=== PATIENT | female | born 2000 | race African-American/Black ===

== ENCOUNTER 2021-10-06 18:21 | Emergency (ER) | payer OTHER, SELFPAY ==
[2021-10-06 18:23] VITALS: BP 134/81; PULSE 96; RESP 20; TEMP 37; O2SAT 98
--- NOTE | 2021-10-06 18:39 | ED.GENADULT ---
HPI - General Adult General Chief complaint: Wound/Laceration Stated complaint: laceration Time Seen by Provider: 10/06/21 18:27 Source: patient Mode of arrival: ambulatory Limitations: no limitations History of Present Illness HPI narrative: Patient is a 21 yo female with CC of laceration to the distal aspect of the left 2nd digit that she sustained last night while using a knife. She reports she cleaned it and put a bandaid on the area. She reports it looked different today so she decided to come have it checked out. She states she is not UTD on tetanus. Review of Systems Review of Systems: CONSTITUTIONAL: Denies fever, chills, or sweats. EYES: Denies visual changes, redness, or discharge. ENT: Denies rhinorrhea, congestion, sore throat, or otalgia. CARDIOVASCULAR: Denies chest pain, palpitations, or edema. RESPIRATORY: Denies cough or dyspnea. GASTROINTESTINAL: Denies abdominal pain, nausea, vomiting, or diarrhea. GENITOURINARY: Denies dysuria or hematuria. SKIN: Reports laceration Denies rash or itching. MUSCULOSKELETAL: Denies back pain, joint pain, or myalgia. NEUROLOGIC: Denies headache, numbness, dizziness, or weakness. PSYCHIATRIC: Denies anxiety or depression. Exam Narrative: GENERAL: Well-appearing, well-nourished, and in no acute distress. HEAD: Normocephalic, atraumatic. EYES: PERRLA and EOMI. CHEST: Clear to auscultation. No respiratory distress. No wheezes rales or rhonchi HEART: Regular rate and rhythm. No murmur heard. Normal peripheral pulses. EXTREMITIES: Normal range of motion. No edema. SKIN: laceration to the distal tip of the left 2nd digit. Not bleeding. ROM intact. cap refill and sensation intact. Warm, dry, no rash. NEURO: No focal deficits. Alert and oriented x3. PSYCH: Normal mood and affect. Course Vital Signs Vital signs: Vital Signs Temperature 98.6 F 10/06/21 18:23 Pulse Rate 96 10/06/21 18:23 Respiratory Rate 20 10/06/21 18:23 Blood Pressure 134/81 10/06/21 18:23 Pulse Oximetry 98 10/06/21 18:23 Temperature 98.6 F 10/06/21 18:23 Pulse Rate 96 10/06/21 18:23 Respiratory Rate 20 10/06/21 18:23 Blood Pressure 134/81 10/06/21 18:23 Pulse Oximetry 98 10/06/21 18:23 Medical Decision Making MDM Narrative Medical decision making narrative: Discussed with the patient that the laceration cannot be closed since it occurred last night. The patient has been instructed to wash area with antibacterial soap and apply antibacterial ointment. Patient will be updated on her tetanus. Patient will be given a splint to protect the laceration when she is up and about as she reports she continues to bump the digit. Vital Signs Vital Signs: Vital Signs Temperature 98.6 F 10/06/21 18:23 Pulse Rate 96 10/06/21 18:23 Respiratory Rate 20 10/06/21 18:23 Blood Pressure 134/81 10/06/21 18:23 Pulse Oximetry 98 10/06/21 18:23 Temperature 98.6 F 10/06/21 18:23 Pulse Rate 96 10/06/21 18:23 Respiratory Rate 20 10/06/21 18:23 Blood Pressure 134/81 10/06/21 18:23 Pulse Oximetry 98 10/06/21 18:23 Discharge Plan Discharge Clinical Impression: Laceration Patient Disposition: Home, Self-Care Condition: Stable Instructions: Antibiotic Form, Finger Laceration (ED) Additional Instructions: Wear splint to protect when you are up and about. Remove it at rest so your finger does not become stiff. Wash area with antibacterial soap and apply antibacterial ointment. Follow-up with your primary care in 2 to 3 days for wound reevaluation. Follow-up sooner if there are any questions or concerns or worsening signs of infection. Return to emergency department if you have any emergent symptoms. Follow-up/Referrals: UNKNOWN,DOCTOR [Primary Care Provider] - Time of Disposition: 18:50
[2021-10-06] MEDS: TETANUS,DIPHTHERIA,AC PERTUSSIS ADULT (0.5 ML) BOOSTRIX IM (18:49)
--- NOTE | 2021-10-06 18:59 | PC.NURSE ---
wound dressed with Bacitracin triple antibiotic ointment.
[2021-10-06 19:35] VITALS: BP 113/72; PULSE 76; RESP 18; O2SAT 100
== END 2021-10-06 19:35 | disposition home or self-care (01) ==
LOC: ANHED 18:57
PROVIDERS: Emergency Provider Emergency Medicine
DX: S61.211A Laceration without foreign body of left index finger without damage to nail, initial encounter (principal); Z23 Encounter for immunization; W26.0XXA Contact with knife, initial encounter
CPT/HCPCS: 29130; 90471; 90715; 99282; A9270

== ENCOUNTER 2025-09-04 03:17 | Emergency (ER) | payer MEDICAID, SELFPAY ==
--- OUTSIDE RECORDS SUMMARY | 2008-12-12 18:00 | XMS_ITS | Continuity of Care Document ---
Author Organization [facility] Address [address] [place] [id number] Phone Care Team Providers Care Psychological Assistant Name Role Phone CONV, [facility] Unavailable Unavailable Advance Directives Directive Yes / No Effective Date File Name No Information Encounters Encounter Description Practice Location Reason(s) For Visit Diagnoses Date Provider Providers Copied on Encounter [facility] /[facility], [address] [place] [address], [id number], [place] tel:[phone] Z [facility] CONV No Information CONV [facility]. [address] [place] [address], [id number], [place]. Family History Family Member Type Diagnosis Age At Onset No Information Immunizations Vaccine Date Status Comments DTAP administered Source: New Imm unization Record [id number], PED/ADL administered Note: RA ; Source: N ew Immunization Record INJECTABLE POLIOVIRUS administered Note: LA ; Source: New Immunization Record HIB 3 DOSE SERIES administered Source: Ne w Immunization Record DTP administered Source: New Imm unization Record DTP administered Note: LA ; Sour ce: New Immunization Record [id number], PED/ADL administered Note: LA ; Source: N ew Immunization Record VARICELLA, PED/ADOLESCENT administered So urce: New Immunization Record HIB 3 DOSE SERIES administered Source: Ne w Immunization Record DTP administered Note: LA ; Sour ce: New Immunization Record ORAL POLIO administered Note: PO ; Sour ce: New Immunization Record HEP B VACCINE PED/ADOL administered Note: LA ; Source: New Immunization Record HIB 3 DOSE SERIES administered Source: Ne w Immunization Record DTP administered Note: LA ; Sour ce: New Immunization Record ORAL POLIO administered Note: PO ; Sour ce: New Immunization Record HIB 3 DOSE SERIES administered Source: Ne w Immunization Record DTP administered Note: LA ; Sour ce: New Immunization Record ORAL POLIO administered Note: PO ; Sour ce: New Immunization Record HEP B VACCINE PED/ADOL administered Note: LA ; Source: New Immunization Record HEP B VACCINE PED/ADOL administered Note: LA ; Source: New Immunization Record Payers Payer name Insurance type Covered democrat ID Authoriza tion(s) No Information Social History Type Description Quantity Date Captured Comments Sex Female Smoking Status No Information Chief Complaint And Reason For Visit No Information History Of Present Illness Encounter Date Complaint History Of Prese nt Illness No Information Instructions Date Instruction Additional Infor mation No Information Assessments Type Assessment Date No Information Patient Care Teams Name Effective Dates (start - stop) Status Members No Information
[2025-09-04] VITALS (17 sets, daily range): BP systolic 97–122; BP diastolic 46–96; PULSE 79–94; RESP 18–20; TEMP 36.9; O2SAT 88–100
--- NOTE | 2025-09-04 03:52 | ED.NAVMDI ---
HPI - Nausea/Vomiting/Diarrhea General Chief complaint: Nausea/Vomiting/Diarrhea Stated complaint: N/V; 3 MONTHS Time Seen by Provider: 09/04/25 03:43 History of Present Illness HPI Narrative: 25-year-old female approximately 14 weeks by ultrasonography. She has care and follows with OBGYN in [place] where she lives. This is her 7th . Patient has 3 live children at home. No previous gestational issues such as gestational hypertension or nausea vomiting in . No history of morning sickness. States that she felt nauseous and vomited earlier today. She said she was having some low back pain as well but denies any urinary complaints. No fever, chills. Was otherwise in her normal state of health. Her kids at home have been having runny nose and vomiting at home as well. No recent other exposures. No recent medications. Besides prenatals and antidepressants does not take any chronic medications. Was otherwise in her normal state of health. States she had some Zofran at home from a prescription that she tried but vomitted after. Related Data Allergies Allergy/AdvReac Type Severity Reaction Status Date / Time No Known Allergies Allergy Verified 09/04/25 03:22 Review of Systems Review of Systems: As reviewed above in HPI Exam Narrative: GENERAL: [Well-appearing, well-nourished, and in no acute distress.] HEAD: [Normocephalic, atraumatic.] EYES: [PERRLA and EOMI.] ENT: Nares clear, no rhinorrhea or epistaxis. Mucous membranes moist. NECK: Supple. CHEST: [Clear to auscultation. No respiratory distress.] HEART: [Regular rate and rhythm]. No murmur heard. [Normal peripheral pulses.] ABDOMEN: [Soft, nondistended], [nontender], [No rigidity or guarding] EXTREMITIES: Normal range of motion. [No edema.] SKIN: Warm, dry, no rash. NEURO: [No focal deficits]. Alert and oriented [x3.] PSYCH: [Normal mood and affect.] Course Vital Signs Vital signs: Vital Signs Blood Pressure 122/61 09/04/25 03:22 Pulse Oximetry 98 09/04/25 03:22 Temperature 36.9 C 09/04/25 03:23 Pulse Rate 79 09/04/25 05:46 Respiratory Rate 18 09/04/25 05:46 Blood Pressure 97/58 L 09/04/25 05:46 Pulse Oximetry 99 09/04/25 05:46 MDM - Nausea/Vomiting/Diarrhea MDM Narrative Medical decision making narrative: 25-year-old female approximately 14 weeks by ultrasonography. She has care and follows with OBGYN in [place] where she lives. This is her 7th . Patient has 3 live children at home. No previous gestational issues such as gestational hypertension or nausea vomiting in . No history of morning sickness. States that she felt nauseous and vomited earlier today. She said she was having some low back pain as well but denies any urinary complaints. No fever, chills. Was otherwise in her normal state of health. Her kids at home have been having runny nose and vomiting at home as well. No recent other exposures. No recent medications. Besides prenatals and antidepressants does not take any chronic medications. Was otherwise in her normal state of health. States she had some Zofran at home from a prescription that she tried but vomitted after. Patient is overall very well-appearing not any acute distress. In good spirits and pleasant to speak with. She has normal vital signs with any tachycardia, fever, hypoxemia or blood pressure concerns. She has a soft nontender nondistended abdomen. No signs of peritonitis. Likely benign nausea vomiting during versus hyperemesis gravidarum versus less likely infectious process such as UTI or intra-abdominal infection given the benign exam and lack of fever. Could also be a viral syndrome as her kids have had similar symptoms today. Given Zofran and Vit B6 with fluids and basic laboratory studies and urine obtained. Patient felt improved after interventions and remains hemodynamically stable. Laboratory studies showed no leukocytosis or significant anemia. Normal creatinine and electrolytes. Urinalysis without any signs of active infection. Safe for discharge with regular OB follow-up. Given prescription for Reglan as needed. Medical Records Attestation: I reviewed the patient's medical records. Lab Data Attestation: I reviewed the patient's lab results. 09/04/25 04:32 09/04/25 04:32 Labs: Lab Results 09/04/25 09/04/25 Range/Units 04:32 05:29 WBC 5.4 (4.5-10.0) K/mm3 RBC 4.40 (4.2-5.4) M/mm3 Hgb 11.6 L (12.0-15.0) g/dL Hct 35.1 L (37.0-47.0) % MCV 79.8 L (80-100) fl MCH 26.4 (26-34) pg MCHC 33.0 (32-36) g/dl RDW 13.8 (11.5-14.5) % Plt Count 260 (150-375) k/mm3 MPV 9.9 (7.4-10.4) fl Immature Gran % (Auto) 0.4 (0-0.5) % Neut % (Auto) 86.2 H (45.5-73.1) % Lymph % (Auto) 9.3 L (18.3-44.2) % Campbell % (Auto) 3.5 (2.6-8.5) % Eos % (Auto) 0.2 (0-4.4) % Baso % (Auto) 0.4 (0.2-1.2) % Lymph # (Auto) 0.50 L (0.9-3.2) K/mm3 Campbell # (Auto) 0.2 (0.1-0.6) K/mm3 Eos # (Auto) 0.0 (0-0.3) K/mm3 Baso # (Auto) 0.0 (0.0-0.1) K/mm3 Abs Immat Gran (auto) 0.02 (0.00-0.031) K/mm3 Absolute Neuts (auto) 4.6 (1.3-6.7) K/mm3 Absolute Nucleated RBC 0.000 (0.0-0.012) K/mm3 Nucleated RBC % 0.0 (0.0-0.2) % Sodium 131 L (137-145) mmol/L Potassium 3.4 (3.4-5.0) mmol/L Chloride 101 (98-107) mmol/L Carbon Dioxide 25 (22-30) mmol/L Anion Gap 5 (4-12) mmol/L BUN 6 L (7-17) mg/dL Creatinine 0.61 L (0.7-1.0) mg/dL Estim Creat Clear Calc 111 ml/min Estimated GFR > 60 (59 - ) Glucose 111 H (65-110) mg/dL Calcium 8.4 (8.4-10.2) mg/dL Total Bilirubin 0.9 (0.2-1.3) mg/dL AST 19 (14-36) U/L ALT 13 (6-35) U/L Alkaline Phosphatase 68 (38-126) U/L Total Protein 6.8 (6.3-8.2) g/dL Albumin 3.6 (3.5-5.1) g/dL Lipase 32 (23-300) U/L Urine Color Yellow (Yellow) Urine Appearance Cloudy H (Clear) Urine pH 5.5 (5.0-9.0) Ur Specific [place] 1.020 (1.001-1.035) Urine Protein Negative (Negative) mg/dL Urine Glucose (UA) Negative (Negative) mg/dL Urine Ketones 3+ H (Negative) mg/dL Ur Blood (Man) Negative (Negative) Urine Nitrate Negative (Negative) Urine Bilirubin Negative (Negative) Urine Urobilinogen 1.0 (<2.0) mg/dL Leukocyte Esterase Rfl Trace H (Negative) MAGALI/UL Urine RBC 0-2 (0-2) /hpf Urine WBC 0-5 (0-3) /hpf Ur Squamous Epith Cells Moderate (Few) /hpf Urine Bacteria 1+ H /hpf Urine Casts 0-2 Influenza A (RT-PCR) Negative (Negative) Influenza B (RT-PCR) Negative (Negative) RSV (RT-PCR) Negative (Negative) SARS-CoV-2 RNA (RT-PCR) Negative (Negative) Discharge Plan Discharge Clinical Impression: Nausea and vomiting during Patient Disposition: Home Condition: Stable Instructions: Antibiotic Form, Acute Nausea and Vomiting (ED) Additional Instructions: Laboratory studies showed no signs of infection or dehydration. No signs of urinary disease or urinary infection. We will send you home with strong anti nausea medications and encourage you to follow-up with your OBGYN during this . Return with any inability to tolerate oral intake, worsening symptoms or new developing emergent issues. Patient Language: Macedonian Prescriptions: New metoclopramide HCl [Reglan] 5 mg tablet 5 mg PO Q8H PRN (Reason: nausea and vomiting) Qty: 10 0RF Follow-up/Referrals: PHYSICIAN,ARTIFICIAL INTELLIGENCE SPECIALIST [Primary Care Provider, Internal Medicine] Time of Disposition: 05:42
[2025-09-04] MEDS: ONDANSETRON INJ 4 MG/2 ML VIAL IV PUSH (04:13)
[2025-09-04] MEDS: LACTATED RINGERS 1,000 ML 999 ML IV CONT (04:13)
[2025-09-04] MEDS: PYRIDOXINE HCL 100 MG/ML VIAL (*SPC) 50 MG IV PUSH (04:16)
--- OUTSIDE RECORDS SUMMARY | 2025-09-04 04:23 | XMS_ITS | Clinical Summary ---
Author Organization [facility] Address [address] [place] [address] Care Team Providers Care Corporate Quality Engineer Name Role Phone No, Physician Primary Care Provider [phone] Keenan Mckenzie MD Unavailable [phone] Allergies Active Allergy Reactions Criticality Noted Date Comments Fluoxetine Urticaria Medium 10/29/2023 Lamotrigine Hives Medium 12/12/2018 Nickel Hives Medium 08/03/2018 Medications famotidine (PEPCID) 20 mg tablet Take 1 tablet (20 mg total) by mouth 2 (two) times a day. 60 tablet 12/12/19 19 Active Additional Information Patient not taking.Reported on 08/22/2022 polyethylene glycol (MIRALAX) 17 gram packetIndications: constipation Take 1 packet (17 g total) by mouth daily as needed for constipation 10 packet 06/08/20 22 Active ondansetron ODT (ZOFRAN-ODT) 4 mg disintegrating tablet Take 1 tablet (4 mg total) by mouth every 8 (eight) hours as needed for nausea or vomiting 20 tablet 04/05/20 24 Active acetaminophen (TYLENOL) 500 mg tablet Take 1 tablet (500 mg total) by mouth every 6 (six) hours as needed for pain 30 tablet 04/05/20 24 Active ondansetron ODT (ZOFRAN-ODT) 4 mg disintegrating tablet Dissolve 1 tablet oral every 4 hours as needed for nausea or vomiting. 15 tablet 04/09/20 25 Active Active Problems Problem Noted Date Diagnosed Date Neuroendocrine tumor 09/06/2022 Overview (09/06/2022): Added automatically from request for surgery [id number] Acute appendicitis 06/08/2022 Assessment & Plan (06/08/2022 10:58 AM CDT): Presents to the [facility] ED w/ 2 days of RLQ and right flank pain. She also endorses fevers, chills, nausea, and NBNB emesis. On arrival to [facility] ED, she was febrile to 101.4 F and tachycardic to 114. Exam notable for RLQ tenderness to palpation, right CVA tenderness, +Rovsing sign, and +Obturator sign. Labs notable for WBC 9.5, INR 1.3, Na 134, and UA w/ cloudy urine, 3+ leuk est, > 50 WBC, and trace bacteria. Contrasted CT abd/pelvis notable for right acute pyelonephritis and tip appendicitis with large appendicolith in the distal appendix. - NPO for urgent laparoscopic appendectomy - Vanc/cefe/flagyl OR 06/08 ([facility]) laparoscopic appendectomy - 06/08 POD#0, Stop vanc & cefe. Outpatient oral abx regimen (SEE PYELO) + flagyl, ADAT to regular. OOB. Follow up [facility] via [facility] Pathology: 06/08 OR Pathology, appendix - pending Pyelonephritis 06/08/2022 Assessment & Plan (06/08/2022 10:58 AM CDT): 06/08 UA+, culture in process Vanc/cefe started pre-op - 06/08 stop Vanc & Cefe, oral abx until urine culture result available, afebrile & WBC NL --- f/u with PCP Bloody diarrhea 09/15/2018 Assessment & Plan (09/15/2018 1:05 AM REGIONAL OPERATIONS DIRECTOR): 18 yo girl presenting with 1 day of bloody diarrhea. Symptoms began evening RN INTERVENTIONAL with cramping followed by bloody diarrhea, which she describes as dark red in color. In ED, CBC, CMP, coags were reassuring. Hemoccult was negative. Admitted for HUS mitigation protocol. Infectious etiologies are at the top of the differential given history of eating a hamburger at her work that may or may not have been cooked through and then eating a gas station empanada the next evening. Stool was obtained in the ED and cultures are currently pending. Alternatively, this may not be true blood in her stools. Hemoccult was negative and her description of the orange colored buffalo chicken empanada suggest that her stool color may be an artifact of that meal. Her burning sensation with defecation could indicate anal fissures, although none were noted on exam. - HUS mitigation fluids: 2 L/m2/d D5 NS w/KCl - Daily BMP, CBC - f/u stool culture - POAL - Strict I/O Anxiety 09/15/2018 Assessment & Plan (09/15/2018 1:06 AM REGIONAL OPERATIONS DIRECTOR): On Prozac for anxiety/depression. Will continue while admitted. Insomnia 09/15/2018 Assessment & Plan (09/15/2018 1:07 AM REGIONAL OPERATIONS DIRECTOR): Takes trazadone qhs for insomnia, will continue while admitted. Encounters Date Type Department Care Team Description 07/05/2025 Telephone [facility] [address] [place] [address] Manohar Boyle RN 07/03/2025 12:15 PM CDT - 07/03/2025 4:05 PM CDT Emergency [facility] [address] [place] [address] Althea Evans MD Threatened miscarriage in early (Primary Dx) Discharge Disposition: Discharge to home or self care 06/19/2025 12:28 PM CDT - 06/19/2025 3:13 PM CDT Emergency [facility] [address] [place] [address] Althea Evans MD Abdominal pain (Primary Dx); Bleeding in early Discharge Disposition: Discharge to home or self care from Last 3 Months Immunizations Immunization Administration Dates Next Due Influenza, Quadrivalent, Spl it, Preservative Free, Intramuscular 09/15/2018 Surgical History Surgery Date Site/Laterality Comments GALLBLADDER SURGERY APPENDECTOMY CHOLECYSTECTOMY Medical History Medical History Date Comments Insomnia Anxiety Depression Neuroendocrine cancer (HCC) Social History Tobacco Use Types Packs/Day Years Used Date Smoking Tobacco: Former Vaping Q uit: 08/18/2022 Smokeless Tobacco: Never Tobacco Cessation:Counseling Given: Not Answered AUDIT-C Answer Date Recorded Q1: How often do you have a drink containing alcohol? Never 02/25/2023 Q2: How many drinks containi ng alcohol do you have on a typical day when you are drinking? Patient does not drink Q3: How often do you have si x or more drinks on one occasion? Never 02/25/2023 Personal Safety Answer Date Recorded Have you ever been in or are you currently in a harmful physical or emotional relationship or is someone making you feel afraid or unsafe? Denies 07/03/2025 Comments Unknown Sex and Gender Information Value Date Recorded Sex Assigned at Not on file Legal Sex Female 1:28 AM CDT Gender Identity Not on file Sexual Orientation Not on file Obstetrics History Para Term AB IAB SAB Ectopic Multiple Livin g Live Births 4 2 1 1 2 2 Date Outcome GA Total Labor Labor/2nd/3rd Weight Sex Type Anes PTL Michelle A1 A5 Name Clin 2019 F Vag-S pont Epidur al Y Livin g Delivery Location:[facility] 023 Term F Vag-S pont Epidur al Livin g Delivery Location:[facility] Last Filed Vital Signs Vital Sign Reading Time Taken Comments Blood Pressure 95/55 07/03/2025 11:29 AM CDT Pulse 65 07/03/2025 11:28 AM CDT Temperature 36.6 C (97.8 F) 07/03/2025 11:28 AM CDT Respiratory Rate 17 07/03/2025 11:28 AM CDT Oxygen Saturation 97% 07/03/2025 11:28 AM CDT Inhaled Oxygen Concentration - - Weight 71.7 kg (158 lb) 07/03/2025 11:28 AM CDT Height 160 cm (5' 3) 06/19/2025 11:20 AM CDT Body Mass Index 27.99 06/19/2025 11:20 AM CDT Plan of Treatment Health Maintenance Due Date Last Done Comments Cervical Cancer Screening 1998 Depression Screening 1998 Regular Well Visit/Exam 18-64 01/15/2016 HPV Vaccines (1 - 3-dose SCDM series) 2025 Influenza Vaccine (#1) 2025 02/07/2020, 2017 DTaP/Tdap/Td Vaccine (8 - Td or Tdap) 10/06/2031 10/06/2021, 07/28/2020, 02/19/2003, Additional history exists Hepatitis B Screening Completed 05/22/2001 , 1998, 1998, Additional history exists Varicella Vaccines Completed 05/08/2009, 02/11/1999 Hepatitis C Screening Completed 07/03/2025 Pneumococcal vaccine <65 Aged Out No longer eligible based on patient's age to complete this topic Procedures Procedure Name Priority Date/Time Associated Diagnosis Comments N. GONORRHOEAE/C. TRACHOMATIS AMPLIFICATION Routine 07/03/2025 2:43 PM CDT TRICHOMONAS VAGINALIS PCR Routine 07/03/2025 2:43 PM CDT POCUS FEMALE TAB PELVIC, NON- 07/03/2025 1:59 PM CDT POCT RAPID HIV ANTIBODY COMMUNITY SCREENING-RANDAL ELIGIBLE STAT 07/03/2025 1:11 PM CDT HEPATITIS PANEL, ACUTE Routine 1:09 PM CDT RPR Routine 07/03/2025 1:09 PM CDT URINALYSIS AND REFLEX TO MICROSCOPIC AND CULTURE STAT 07/03/2025 12:57 PM CDT DIFFERENTIAL AUTO STAT 07/03/2025 12: 53 PM CDT CBC WITH AUTO DIFFERENTIAL STAT 07/03/2025 12:53 PM CDT HCG, BLOOD, QUANTITATIVE STAT 07/03/2025 12:53 PM CDT DIFFERENTIAL AUTO STAT 06/19/2025 1:1 3 PM CDT CBC WITH AUTO DIFFERENTIAL STAT 06/19/2025 1:13 PM CDT HCG, BLOOD, QUANTITATIVE STAT 06/19/2025 1:13 PM CDT POCT HCG, URINE Routine 06/19/2025 1:04 PM CDT from Last 3 Months Results * N. gonorrhoeae/C. trachomatis Amplification Endocervical (07/03/2025 2:43 PM CDT) C. trachomatis Not Detected Not Detected [facility] N. gonorrhoeae Not Detected Not Detected [facility] Comment: Interpretive Data This assay detects Chlamydia trachomatis and Neisseria gonorrhoeae by nucleic acid amplification testing (NAAT). This assay has been cleared by the [place] Food and Drug administration. The performance characteristics of this test have been verified by the [facility] laboratory. The performance characteristics of this test have not been evaluated in individuals less than 14 years of age. Current Interpretive Data last revised 2023. Endocervical (None) 07/03/20 25 2:43 PM CDT 07/03/2025 2:53 PM CDT us Althea Evans MD LAB MICROBIOLOGY - GENERAL O RDERABLES Final Result [facility] [place] [address] [facility] * Trichomonas vaginalis PCR Endocervical (07/03/2025 2:43 PM CDT) Trichomonas DNA Not Detected Not Detected [facility] Endocervical 07/03/2025 2:43 PM CDT 07/03/2025 2:53 PM CDT Narrative [facility] - 07/03/2025 4:10 PM CDT Interpretive Data: This assay detects Trichomonas vaginalis by nucleic acid amplification testing (NAAT). This assay has been cleared by the [place] Food and Drug administration. The performance characteristics of this test have been verified by the [facility] laboratory. Excess blood in specimens may be inhibitory and result in false negative results. The performance of this test has not been evaluated in women or individuals less than 18 years of age. Althea Evans MD LAB MICROBIOLOGY - GENERAL O RDERABLES Final Result [facility] [place] [address] [facility] * POCUS Female TAB Pelvic, Non- (07/03/2025 1:59 PM CDT) Anatomical Region Laterality Modality Other 07/03/2025 1:48 PM CDT Narrative 07/22/2025 3:56 PM CDT Performed by: Jorge Bolanos Transabdominal: Exam Information: Exam type: Diagnostic Indication(s) for Exam: Quantitative hCG (+) Findings: IUP: Present Intrauterine findings: Yolk sac location: Fundus Right adnexa : No significant abnormality Left adnexa : No significant abnormality Pelvic free fluid: Small Interpretation: IUP of indeterminate viability Electronically signed by Jorge Bolanos on Thursday, July 03, 2025 at 5:15 PM I have reviewed the images & the resident's interpretation. I agree with the findings. Images on file. Electronically signed by ALTHEA ROBERSON on Tuesday, July 22, 2025 at 3:56 PM I have reviewed the images & the resident's interpretation. I agree with the findings. Images on file. Procedure Note Althea Evans MD - 07/22/2025 Performed by: Jorge Bolanos Transabdominal: Exam Information: Exam type: Diagnostic Indication(s) for Exam: Quantitative hCG (+) Findings: IUP: Present Intrauterine findings: Yolk sac location: Fundus Right adnexa : No significant abnormality Left adnexa : No significant abnormality Pelvic free fluid: Small Interpretation: IUP of indeterminate viability Electronically signed by Jorge Bolanos on Thursday, July 03, 2025 at5:15 PM I have reviewed the images & the resident's interpretation. I agree withthe findings. Images on file. Electronically signed by ALTHEA ROBERSON on Tuesday, July 22, 2025 at3:56 PM I have reviewed the images & the resident's interpretation. I agree withthe findings. Images on file. Althea Evans MD POCUS ORDERABLES Final Resul t * POCT Rapid HIV Antibody Community Screening-Randal Eligible (07/03/2025 1:11 PM CDT) Pathologist [facility] Rapid HIV, POC Negative Negative Lot Number [id number] QC Control Line Acceptable Blood 07/03/2025 1:11 PM CDT Althea Evans MD POINT OF CARE TEST ORDERABLE S Final Result * Hepatitis panel, acute Blood (07/03/2025 1:09 PM CDT) Pathologist [facility] Hep A IgM Nonreactive Nonreactive Hep B core IgM Nonreactive Nonreactive [facility] Hep C Ab Nonreactive Nonreactive [facility] Comment:Antibodies to HCV no t detected. Does NOT exclude the possibility of recent exposure to HCV. Current interpretive data was last revised on 22 HepBsAg Nonreactive Nonreactive [facility] Blood 07/03/2025 1:09 PM CDT 07/03/2025 1:18 PM CDT Althea Evans MD LAB MICROBIOLOGY - GENERAL O RDERABLES Final Result [facility] Department of Laboratories [place], [place] [id number] * RPR Blood Blood, venous (07/03/2025 1:09 PM CDT) RPR Nonreactive Nonreactive Blood Venous blood specimen / Unknown 07/03/2025 1:09 PM CDT 07/03/2025 1:18 PM CDT us Althea Evans MD LAB MICROBIOLOGY - GENERAL O RDERABLES Final Result [facility] [place] [address] * Urinalysis reflex to microscopic and culture Urine (07/03/2025 12:57 PM CDT) Color, ur Yellow Yellow Clarity, ur Clear Clear [facility] Specific gravity, ur 1.016 1.003 - 1.030 [facility] pH, urine 6.5 [facility] Comment: Interpretive Data U rine pH is affected by diet, medications, systemic acid-base disturbances, and renal tubular function. pH may affect urinary stone formation. For example, urine pH below 6.0 may help reduce the tendency for calcium phosphate stones and pH greater than 6.0 may reduce the tendency for uric acid stone formation. Source: [facility] Current Interpretive Data was last revised on 2017 Protein, ur ql Negative Negative [facility] Glucose, ur ql Negative Negative [facility] Ketones, ur Negative Negative [facility] Bilirubin, ur Negative Negative [facility] Blood, ur Negative Negative [facility] Urobilinogen, ur <2.0 <2.0 mg/dL [facility] Nitrite, ur Negative Negative [facility] Leukocyte esterase, ur Negative Negative [facility] UA reflex comment Reflex conditions for microscopic UA and culture not met. [facility] Urine 07/03/2025 12:5 7 PM CDT 07/03/2025 1:05 PM CDT us Althea Evans MD LAB MICROBIOLOGY - GENERAL O RDERABLES Final Result [facility] [place] [address] * Differential, auto (07/03/2025 12:53 PM CDT) Neutrophil abs 5.23 1.50 - 6.50 K/cumm Imm gran abs 0.02 0.00 - 0.10 K/cumm [facility] Lymphocyte abs 2.24 0.80 - 3.30 K/cumm [facility] Monocyte abs 0.43 0.20 - 0.80 K/cumm [facility] Eosinophil abs 0.04 0.00 - 0.50 K/cumm [facility] Basophil abs 0.04 0.00 - 0.10 K/cumm [facility] Neutrophil pct 65.3 % [facility] Comment: Interpretive Data Percent cell count reference ranges are not reported, since discordance with absolute values may lead to misinterpretation of CBC data. Current Interpretive Data was last revised on 2018. Imm gran pct 0.3 % [facility] Comment: Interpretive Data Percent cell count reference ranges are not reported, since discordance with absolute values may lead to misinterpretation of CBC data. Current Interpretive Data was last revised on 2018. Lymphocyte pct 28.0 % [facility] Comment: Interpretive Data Percent cell count reference ranges are not reported, since discordance with absolute values may lead to misinterpretation of CBC data. Current Interpretive Data was last revised on 2018. Monocyte pct 5.4 % [facility] Comment: Interpretive Data Percent cell count reference ranges are not reported, since discordance with absolute values may lead to misinterpretation of CBC data. Current Interpretive Data was last revised on 2018. Eosinophil pct 0.5 % [facility] Comment: Interpretive Data Percent cell count reference ranges are not reported, since discordance with absolute values may lead to misinterpretation of CBC data. Current Interpretive Data was last revised on 2018. Basophil pct 0.5 % [facility] Comment: Interpretive Data Percent cell count reference ranges are not reported, since discordance with absolute values may lead to misinterpretation of CBC data. Current Interpretive Data was last revised on 2018. Blood 07/03/2025 12:5 3 PM CDT 07/03/2025 1:02 PM CDT Althea Evans MD LAB BLOOD ORDERABLES Final R esult Performing Organization Address City/State/[facility] de Phone Number [facility] [place] [address] * (ABNORMAL) CBC with auto differential (07/03/2025 12:53 PM CDT) [facility] WBC 8.00 3.80 - 9.90 K/cumm Hgb 13.1 11.9 - 15.5 g/dL [facility] Hct 37.7 35.6 - 45.5 % [facility] Plt 293 150 - 400 K/cumm [facility] MPV 10.4 9.1 - 12.3 fL [facility] RBC 4.81 3.90 - 5.20 M/cumm [facility] MCV 78.4(L) 81.3 - 96.4 fL [facility] MCH 27.2 27.1 - 33.3 pg [facility] MCHC 34.7 32.3 - 35.7 g/dL [facility] RDW CV 15.2(H) 11.1 - 14.9 % [facility] RDW SD 43.1 35.7 - 48.1 fL [facility] NRBC abs 0.00 0.00 - 0.01 K/cumm [facility] Blood 07/03/2025 12:5 3 PM CDT 07/03/2025 1:02 PM CDT us Althea Evans MD LAB BLOOD ORDERABLES Final R esult Performing Organization Address [facility] Co de Phone Number [facility] [place] [address] * (ABNORMAL) hCG, blood, quantitative (07/03/2025 12:53 PM CDT) [facility] hCG, quant 28,594.0( H) 0.0 - 5.0 I[facility]/L Comment: Interpretive Data Male: < 5 IU/L Non- premenopausal Female: <5 IU/L The [employer] hCG Beta Quant assay procedure was used. Results from different manufacturers or methods may not be comparable. Serial testing should be performed using the same method. Interpretive Data was last revised on 2023 Blood 07/03/2025 12:5 3 PM CDT 07/03/2025 1:02 PM CDT us Althea Evans MD LAB BLOOD ORDERABLES Final R esult [facility] Department [place] [address] * Differential, auto (06/19/2025 1:13 PM CDT) Neutrophil abs 3.90 1.50 - 6.50 K/cumm Imm gran abs 0.01 0.00 - 0.10 K/cumm [facility] Lymphocyte abs 1.60 0.80 - 3.30 K/cumm [facility] Monocyte abs 0.46 0.20 - 0.80 K/cumm [facility] Eosinophil abs 0.17 0.00 - 0.50 K/cumm [facility] Basophil abs 0.03 0.00 - 0.10 K/cumm [facility] Neutrophil pct 63.1 % [facility] Comment: Interpretive Data Percent cell count reference ranges are not reported, since discordance with absolute values may lead to misinterpretation of CBC data. Current Interpretive Data was last revised on 2018. Imm gran pct 0.2 % [facility] Comment: Interpretive Data Percent cell count reference ranges are not reported, since discordance with absolute values may lead to misinterpretation of CBC data. Current Interpretive Data was last revised on 2018. Lymphocyte pct 25.9 % [facility] Comment: Interpretive Data Percent cell count reference ranges are not reported, since discordance with absolute values may lead to misinterpretation of CBC data. Current Interpretive Data was last revised on 2018. Monocyte pct 7.5 % [facility] Comment: Interpretive Data Percent cell count reference ranges are not reported, since discordance with absolute values may lead to misinterpretation of CBC data. Current Interpretive Data was last revised on 2018. Eosinophil pct 2.8 % [facility] Comment: Interpretive Data Percent cell count reference ranges are not reported, since discordance with absolute values may lead to misinterpretation of CBC data. Current Interpretive Data was last revised on 2018. Basophil pct 0.5 % [facility] Comment: Interpretive Data Percent cell count reference ranges are not reported, since discordance with absolute values may lead to misinterpretation of CBC data. Current Interpretive Data was last revised on 2018. Blood 06/19/2025 1:13 PM CDT 06/19/2025 1:23 PM CDT Sidney Wahl MD LAB BLOOD ORDERABLES F inal Result [facility] [place] [address] * (ABNORMAL) CBC with auto differential (06/19/2025 1:13 PM CDT) WBC 6.17 3.80 - 9.90 K/cumm Hgb 13.8 11.9 - 15.5 g/dL [facility] Hct 40.5 35.6 - 45.5 % [facility] Plt 281 150 - 400 K/cumm [facility] MPV 10.1 9.1 - 12.3 fL [facility] RBC 5.18 3.90 - 5.20 M/cumm [facility] MCV 78.2(L) 81.3 - 96.4 fL [facility] MCH 26.6(L) 27.1 - 33.3 pg [facility] MCHC 34.1 32.3 - 35.7 g/dL [facility] RDW CV 15.3(H) 11.1 - 14.9 % [facility] RDW SD 43.4 35.7 - 48.1 fL [facility] NRBC abs 0.00 0.00 - 0.01 K/cumm [facility] Blood 06/19/2025 1:13 PM CDT 06/19/2025 1:23 PM CDT Sidney Wahl MD LAB BLOOD ORDERABLES F inal Result Performing Organization Address [facility] de Phone Number [facility] Department [place] [address] * (ABNORMAL) hCG, blood, quantitative (06/19/2025 1:13 PM CDT) hCG, quant 87.6(H) 0.0 - 5.0 IUnits/L Comment: Interpretive Data Male: < 5 IU/L Non- premenopausal Female: <5 IU/L The [employer] hCG Beta Quant assay procedure was used. Results from different manufacturers or methods may not be comparable. Serial testing should be performed using the same method. Interpretive Data was last revised on 2023 Blood 06/19/2025 1:13 PM CDT 06/19/2025 1:23 PM CDT Sidney Wahl MD LAB BLOOD ORDERABLES F inal Result Performing Organization Address [facility] de Phone Number [facility] [place] [address] * (ABNORMAL) POCT hCG, urine (06/19/2025 1:04 PM CDT) HCG, ur, POC Positive(A) Negative Lot Number [id number] QC Backgroud Clear Acceptable QC Control Line Acceptable Urine 06/19/2025 1:04 PM CDT Sidney Wahl MD POINT OF CARE TEST ORD ERABLES Final Result from Last 3 Months Insurance [facility] Advance Directives For more information, please contact: [phone] * Full Code (Latest Code Status on File) Date Activated Date Inactivated Comments 06/08/2022 5:35 AM 06/08/2022 6:00 PM * Full Code Date Activated Date Inactivated Comments 09/14/2018 9:45 PM 09/15/2018 6:29 PM Care Teams Corporate Quality Engineer Relationship Specialty Start Date End Date No, Physician PCP - General 06/18/17 Keenan Mckenzie MD [address] [facility] [place] [phone] [place] [address] Surgeon Colon and Rectal Surgery 08/22/22
--- OUTSIDE RECORDS SUMMARY | 2025-09-04 04:23 | XMS_ITS | Clinical Summary ---
Author Organization [facility] Address [address] [place] [address] Care Team Providers Care Chief Compliance Officer Name Role Phone Unavailable Primary Care Provider Unavailabl e Source Comments [facility],non-owned Affiliates and Associated Physician Practices is amultiple site organization consisting of ambulatory clinics and hospital sitesin [place], [place], [place] and [place]. This disclosure is being madepursuant to the Care Everywhere program and may not contain all information available regarding this patient. Last updated 18.[facility] Allergies Active Allergy Reactions Criticality Noted Date Comments Fluoxetine Urticaria Medium 10/29/2023 Medications * This document contains information received from the source organization and may not represent a complete record from that organization. * Be aware that medications may not be up to date on this document. Alwaysverify current medications with the patient. traZODone (Desyrel) 100 MG tabletIndicatio ns:Insomnia Take 0.5 (one-half) tablet to 1 (one) tablet by mouth at bedtime Reasons: Trouble Sleeping 30 tablet 4 Active sertraline (Zoloft) 50 MG tabletIndicatio ns:Generalized Anxiety Disorder,Major Depressive Disorder Take 0.5 (one-half) tablet by mouth once daily Reasons: Generalized Anxiety Disorder, Major Depressive Disorder 15 tablet 4 Active gabapentin (Neurontin) 100 MG capsuleIndicati ons:Generalized Anxiety Disorder Take 1 (one) capsule by mouth 3 times daily as needed Reasons: Generalized Anxiety Disorder 90 capsule 4 Active Social History Tobacco Use Types Packs/Day Years Used Date Smoking Tobacco: Never Smokeless Tobacco: Never Tobacco Cessation:Counseling Given: Not Answered Alcohol Use Standard Drinks/Week Comments No 0 (1 standard drink = 0.6 oz pur e alcohol) Comments Unknown Sex and Gender Information Value Date Recorded Sex Assigned at Not on file Legal Sex Female 10:36 AM CDT Gender Identity Not on file Sexual Orientation Not on file Last Filed Vital Signs Vital Sign Reading Time Taken Comments Blood Pressure 112/76 10/29/2023 11:40 AM PRINCIPAL CONSULTANT Pulse 60 10/29/2023 11:40 AM PRINCIPAL CONSULTANT Temperature 36.9 C (98.4 F) 02/05/2017 1:00 AM CDT Respiratory Rate 16 02/05/2017 1:00 AM CDT Oxygen Saturation 100% 02/05/2017 1:00 AM CDT Inhaled Oxygen Concentration - - Weight 74.8 kg (165 lb) 10/29/2023 11:40 AM PRINCIPAL CONSULTANT Height 160 cm (5' 3) 10/29/2023 11:40 AM PRINCIPAL CONSULTANT Body Mass Index 29.23 10/29/2023 11:40 AM PRINCIPAL CONSULTANT Plan of Treatment Health Maintenance Due Date Last Done Comments HIV SCREENING 2013 HEPATITIS C SCREENING 01/10/2016 DTAP/TDAP/TD VACCINES (1 - Tdap) 2017 HEPATITIS B VACCINE (1 of 3 - 19+ 3-dose series) 2017 PAP SMEAR 2019 DEPRESSION SCREENING 10/15/2024 HPV VACCINE (1 - 3-dose SCDM series) 2025 COVID-19 VACCINE ( - 2024-2 6 season) 2025 INFLUENZA VACCINE (#1) 2025 0, 09/15/2018 ZOSTER VACCINE (1 of 2) 01/15/2048 HIB VACCINE Aged Out No longer eligi ble based on patient's age to complete this topic MENINGOCOCCAL (Group B) VACCINE SHARED DECISION-MAKING Aged Out No longer eligible based on patient's age to complete this topic MENINGOCOCCAL GROUPS A/C/Y/W VACCINE Aged Out No longer eligible b ased on patient's age to complete this topic PNEUMOCOCCAL VACCINE Aged Out No long er eligible based on patient's age to complete this topic Insurance [place] [employer] [facility] [employer]
--- OUTSIDE RECORDS SUMMARY | 2025-09-04 04:24 | XMS_ITS | Clinical Summary ---
Author Organization [facility] Address [address] [place] [address] Phone Care Team Providers Care Thread Spooler Name Role Phone Unavailable Primary Care Provider Unavailabl e Allergies Active Allergy Reactions Criticality Noted Date Comments Fluoxetine Hives High 10/29/2023 Lamotrigine Hives High 12/12/2018 Nickel Other (See Comments) 12/14/2017 REDNESS,IRRITATION Medications PNV no.849-TP-gm3-d cordero-epa-fish ( Gummies) 400 mcg-35 mg- 25 mg-5 mg Tablet, Chewable Take 2 Each by mouth daily. Active valACYclovir (VALTREX) 500 mg tablet Take 1 Tablet (500 mg) by mouth 2 times daily. 30 Tablet 1 5 Active metoclopramide HCl (REGLAN) 10 mg tablet Take 1 Tablet (10 mg) by mouth 4 times daily before meals and at bedtime. 80 Tablet 1 08/27/2025 9:50 AM DUMP MOTOR OPERATOR 5 Active ondansetron (ZOFRAN ODT) 4 mg Tablet, Rapid Dissolve Take 1 Tablet (4 mg) by mouth every 6 hours as needed for Nausea. 30 Tablet 3 08/27/2025 9:50 AM DUMP MOTOR OPERATOR 5 Active PNV,calcium 90-yjbj-pptle acid (M-Otis Plus) 27 mg iron- 1 mg Tablet Take 1 Tablet by mouth daily. 90 Tablet 2 08/27/2025 9:50 AM DUMP MOTOR OPERATOR 5 Active no.68-iron-FA 6-dha 28 mg iron- 1 mg-400 mg Capsule Take 1 Capsule by mouth daily. 90 Capsule 2 5 08/27/20 25 Discontinu ed(Reorder ) metoclopramide HCl (REGLAN) 10 mg tablet Take 1 Tablet (10 mg) by mouth 4 times daily before meals and at bedtime. 80 Tablet 1 5 08/27/20 Discontinu ed(Reorder ) ondansetron (ZOFRAN ODT) 4 mg Tablet, Rapid Dissolve Take 4 mg by mouth every 6 hours as needed for Nausea. 5 08/27/20 25 Discontinu ed(Reorder ) Active Problems Problem Noted Date Diagnosed Date Late care affecting , antepart um 08/24/2025 Genital herpes simplex 08/13/2024 Neuroendocrine tumor 09/06/2022 Overview (08/28/2025): Added automatically from request for surgery [id number] History of delivery, currently 08/31/2022 Adjustment disorder with mixed anxiety and depre ssed mood 03/13/2018 Borderline personality disorder 03/13/2018 Estimated Date of Delivery Comme nts Yes 02/26/2026 Date entered shelly or to episode creation Resolved Problems Problem Noted Date Diagnosed Date Resolved Date 39 weeks gestation of 08/13/2024 08/14/2025 Uterine contractions during 08/13/2024 08/14/2025 Vaginal yeast infection 08/13/202407/17 Positive GBS test 04/18/2023 08/14/2025 premature rupture of membranes in third trimester 07/27/2020 09/15/2020 Herpes virus infection in mo ther during third trimester of 07/27/2020 09/15/2020 Calculus of gallbladder with out cholecystitis without obstruction 11/28/2017 01/23/2020 Calculus of gallbladder 11/28/201701/13 Overview (11/28/2017): Added automatically from request for surgery [id number] Encounters Date Type Department Care Team Description 09/01/2025 Abstract [facility] PRINCIPAL SECURITY ARCHITECT - [facility] [address] [facility] [address] [place] [address] Gabriele Biggs MD 08/28/2025 Abstract [facility] PRINCIPAL SECURITY ARCHITECT - [facility] [address] [facility] [address] [place] [phone] Gabriele Biggs MD 08/28/2025 Initial [facility] ABSTRACTION Provider, Abstract Missed menses (Primary Dx) 08/28/2025 Initial STL ABSTRACTION Provider, Abstract 08/27/2025 9:00 AM DUMP MOTOR OPERATOR visit [facility] PRINCIPAL SECURITY ARCHITECT - [facility] [address] [address] [facility] [address] [place] [phone] Gabriele Biggs MD History of delivery, currently (Primary Dx); Missed menses; Late care affecting , antepartum; Screening for STD (sexually transmitted disease); Encounter for screening of mother 08/27/2025 8:30 AM DUMP MOTOR OPERATOR Ancillary Procedure [facility] PRINCIPAL SECURITY ARCHITECT - [address] [place] [phone] Missed menses 08/27/2025 Orders Only Initial Department [address] [place] [address] ATTN: [place] [address] Provider, Historical 08/27/2025 Orders Only Initial Department [address] [place] [address] ATTN: [place] [address] Provider, Historical 08/27/2025 Orders Only [facility] PRINCIPAL SECURITY ARCHITECT - [facility] [id number] [place] [address] [address] [place] [phone] Arik Gonzalez 08/19/2025 External Device Data [facility] ABSTRACTION Provider, Abstract 08/11/2025 External Device Data [facility] ABSTRACTION Provider, Abstract 08/11/2025 External Device Data [facility] ABSTRACTION Provider, Abstract 08/04/2025 External Device Data [facility] AB[facility]CTION Provider, Abstract 07/21/2025 External Device Data [facility] ABSTRACTION Provider, Abstract 06/26/2025 Telephone [facility] PRINCIPAL SECURITY ARCHITECT - [facility] [id number] [place] [address] [address] [place] [phone] Gabriele Biggs MD New Prescription Request 06/21/2025 Results Follow-Up [facility]INCIP[facility]URITY [facility] [address] [facility] [address] [place] [phone] Gabriele Biggs MD HCG QUANTITATIVE, BLOOD, PROGESTERONE, PROGESTERONE, HCG QUANTITATIVE, BLOOD 06/19/2025 Telephone [facility] PRINCIPAL SECURITY ARCHITECT - [facility] [address] [place] [address] [place] [address] Gabriele Biggs MD Needs Orders Written from Last 3 Months Immunizations Immunization Administration Dates Next Due (ADACEL/BOOSTRIX)(10 YR UP) TDAP VACCINE, 0.5ML, IM 07/28/2020 (M-M-R II/PRIORIX)(12 MO UP) MEASLES, MUMPS AND RUBELLA VIRUS VACCINE, 0.5 ML IM/SUBCUT 08/15/2024 INFLUENZA VACCINE QUADRIVALENT 6 MOS UP PF IM Influenza Seasonal Unspecified Formulation IM Family History Relation Name Status Comments Brother 1 Alive Brother 2 Alive Brother 3 Alive Father Alive Mother Alive Social History Tobacco Use Types Packs/Day Years Used Date Smoking Tobacco: Former Cigarettes Smokeless Tobacco: Never Tobacco Cessation:Counseling Given: No Alcohol Use Standard Drinks/Week Comments Not Currently 0 (1 standard drink = 0.6 oz pur e alcohol) Social Connections Answer Date Recorded In a typical week, how many times do you talk on the phone with family, friends, or neighbors? Three times a week 03/01/20 How often do you get togethe r with friends or relatives? Once a week 03/01/2020 How often do you attend chur ch or uatsdin services? Never 03/01/2020 Do you belong to any clubs o r organizations such as temple groups, unions, fraternal or athletic groups, or school groups? No 03/01/2020 How often do you attend meet ings of the clubs or organizations you belong to? Never 03/01/2020 Are you , , di vorced, , never , or living with a partner? Living with partner 03/01/2020 Financial Resource Strain Answer Date R ecorded How hard is it for you to pa y for the very basics like food, housing, medical care, and heating? Not hard at all 03/01/2020 Food Insecurity Answer Date Recorded Within the past 12 months, y ou worried that your food would run out before you got the money to buy more. Never true 03/01/20 20 Within the past 12 months, t he food you bought just didn't last and you didn't have money to get more. Never true 03/01/2020 Transportation Needs Answer Date Record ed In the past 12 months, has l ack of transportation kept you from medical appointments or from getting medications? No 02/12 In the past 12 months, has l ack of transportation kept you from meetings, work, or from getting things needed for daily living? No 03/01/2020 Feeling Safe Answer Date Recorded Are you in a relationship wi th someone who hurts you emotionally and/or physically? Patient unable to answer 08/12/2024 Estimated Date of Delivery Comme nts Yes 02/26/2026 Date entered shelly or to episode creation Sex and Gender Information Value Date Recorded Sex Assigned at Not on file Legal Sex Female 11:40 AM DUMP MOTOR OPERATOR Gender Identity Not on file Sexual Orientation Not on file Last Filed Vital Signs Vital Sign Reading Time Taken Comments Blood Pressure 124/72 08/27/2025 8:49 AM DUMP MOTOR OPERATOR Pulse 52 02/19/2025 11:30 AM CDT Temperature 36.8 C (98.3 F) 02/19/2025 11:30 AM CDT Respiratory Rate 16 02/19/2025 11:30 AM CDT Oxygen Saturation 98% 02/19/2025 11:30 AM CDT Inhaled Oxygen Concentration - - Weight 70.9 kg (156 lb 6.4 oz) 08/27/2025 8:49 A M DUMP MOTOR OPERATOR Height 160 cm (5' 3) 08/27/2025 8:49 AM DUMP MOTOR OPERATOR Body Mass Index 27.71 08/27/2025 8:49 AM DUMP MOTOR OPERATOR Plan of Treatment Upcoming Encounters Date Type Department Care Team (Late st Contact Info) Description 09/22/2025 2:15 PM DUMP MOTOR OPERATOR visit [facility] PRINCIPAL SECURITY ARCHITECT - [facility] [address] [phone] [place] [address] [facility] [address] [place] [address] 10/12/2025 9:00 AM DUMP MOTOR OPERATOR Ancillary Procedure [facility] PRINCIPAL SECURITY ARCHITECT - [facility] [address] [facility] [address] [place] [phone] 10/20/2025 3:45 PM DUMP MOTOR OPERATOR visit [facility] PRINCIPAL SECURITY ARCHITECT - [place] [address] [facility] [address] [place] [phone] [place] [address] [place] [address] [facility] [address] [place] [address] 11/17/2025 3:45 PM DUMP MOTOR OPERATOR visit [facility] PRINCIPAL SECURITY ARCHITECT - [place] [address] [facility] [address] [place] [phone] [place] [address] [place] [facility] [address] [place] [address] 12/01/2025 3:45 PM DUMP MOTOR OPERATOR visit [facility] PRINCIPAL SECURITY ARCHITECT - [place] [facility] [address] [phone] [place] [address] [place] [address] [address] 12/15/2025 3:45 PM DUMP MOTOR OPERATOR visit [facility] PRINCIPAL SECURITY ARCHITECT - [place] [address] [phone] [place] [address] [place] [address] [address] 12/30/2025 10:30 AM CDT Ancillary Procedure [facility] PRINCIPAL SECURITY ARCHITECT - [place] [address] [phone] 12/30/2025 11:00 AM CDT visit [facility] PRINCIPAL SECURITY ARCHITECT - [place] [address] [phone] [place] [address] [place] [address] [address] 01/13/2026 3:45 PM CDT visit [facility] PRINCIPAL SECURITY ARCHITECT - [place] [address] [facility] [address] [place] [phone] [place] [address] [place] [address] [facility] [address] [place], [place] [phone] 01/27/2026 3:45 PM CDT visit [facility] PRINCIPAL SECURITY ARCHITECT - [place] [address] [facility] [address] [place] [phone] [place] [address] [place] [address] [facility] [address] [place] [address] 02/03/2026 3:30 PM CDT visit [facility] PRINCIPAL SECURITY ARCHITECT - [place] [address] [phone] [place] [address] [place] [address] [address] 02/10/2026 3:45 PM CDT visit [facility] PRINCIPAL SECURITY ARCHITECT - [place] [address] [phone] Gabriele Biggs MD [facility] [address] [address] [address] 02/17/2026 3:45 PM CDT visit [facility] PRINCIPAL SECURITY ARCHITECT - [place] [address] [phone] [place] [address] [place] [address] [address] 02/24/2026 3:45 PM CDT visit [facility] PRINCIPAL SECURITY ARCHITECT - [place] [address] [phone] Gabriele Biggs MD [facility] [place] [address] [place] [address] Health Maintenance Due Date Last Done Comments HEPATITIS B VACCINES (1 of 3 - 19+ 3-dose series) 2017 HPV/Cotest (21-29) 2019 HPV VACCINES (1 - 3-dose SCD M series) 2025 INFLUENZA VACCINE (#1) 2025 02/07/2020, 2017 CERVICAL CANCER SCREENING 04/25/2027 PAP SMEAR 04/25/2027 04/25/2024, 09/15, 03/01/2020 DTAP/TDAP/TD VACCINES (2 - T d or Tdap) 07/28/2030 07/28/2020 CHLAMYDIA SCREENING (ANNUAL) 11-24 YEARS Discontinued 08/27/2025, 08/27/2025, 03/01/2020, Additional history exists RSV VACCINE (60+ or ) (No Doses Required) Completed Procedures Procedure Name Priority Date/Time Associated Diagnosis Comments DRUG SCREEN, URINE Routine 08/27/2025 9: 37 AM DUMP MOTOR OPERATOR Encounter for screening of mother OBSTETRIC PANEL Routine 08/27/2025 9:37 AM DUMP MOTOR OPERATOR Screening for STD (sexually transmitted disease) Encounter for screening of mother URINE CULTURE, W/GBS SUSCEPTIBILITIES Routine 08/27/2025 9:37 AM DUMP MOTOR OPERATOR Encounter for screening of mother TRICHOMONAS VAGINALIS BY MIAN, ENDOCERVICAL, VAGINAL, URINE Routine 08/27/2025 9:37 AM DUMP MOTOR OPERATOR Screening for STD (sexually transmitted disease) Encounter for screening of mother GC/CHLAMYDIA, UROGENITAL Routine 025 9:36 AM DUMP MOTOR OPERATOR Screening for STD (sexually transmitted disease) Encounter for screening of mother TRICHOMONAS VAGINALIS BY MIAN, ENDOCERVICAL, VAGINAL, URINE Routine 08/27/2025 9:13 AM DUMP MOTOR OPERATOR GC/CHLAMYDIA, UROGENITAL Routine 025 9:13 AM DUMP MOTOR OPERATOR HCG QUANTITATIVE, BLOOD Routine 06/23/20 3:55 PM CDT Amenorrhea PROGESTERONE Routine 06/23/2025 3:54 PM CDT Amenorrhea PROGESTERONE Routine 06/20/2025 12:54 PM CDT HCG QUANTITATIVE, BLOOD Routine 06/20/20 12:54 PM CDT Amenorrhea CERV/VAG CYTO AGE BASED SCREEN PAP W CT/NG, TRICH Routine 04/25/2024 12:51 PM CDT Missed menses Screening for cervical cancer Screening for STD (sexually transmitted disease) from Last 3 Months or Most Recently Relevant to Health Maintenance Results * URINE CULTURE, W/GBS SUSCEPTIBILITIES (08/27/2025 9:37 AM DUMP MOTOR OPERATOR) Pathologist [facility] [place] CULTURE, URINE, , W/GBS SUSCEPTIBILITIES SEE NOTE [facility] Comment: CULTURE, URINE, , W/GBS SUSCEPTIBILITIES Micro Number: [id number] Test Status: Final Specimen Source: Urine Specimen Quality: Adequate Result: No Growth Test Performed at: [place] [address] [address] [place] [address] Ashok Rodriguez Urine URINE SPECIMEN OBTAINED BY CLEAN CATCH PROCEDURE / Unknown 08/27/2025 9:37 AM DUMP MOTOR OPERATOR 08/27/2025 9:38 AM DUMP MOTOR OPERATOR us Gabriele Biggs MD MICROBIOLOGY - GENERAL ORDERA BLES Final Result [facility] [phone] [place] [address] [address] [place] [address] * TRICHOMONAS VAGINALIS BY MIAN, ENDOCERVICAL, VAGINAL, URINE (08/27/2025 9:37 AM DUMP MOTOR OPERATOR) Only the most recent of2 resultswithin the time period is included. Pathologist [facility] [place] TRICHOMONAS VAGINALIS RNA QUAL TMA NOT DETECTED NOT DETECTED [facility] Comment: For additional information, please refer to http://education.[employer]/ faq/Trichomonastma (This link is being provided for informational/ educational purposes only.) Test Performed at: [facility] [address] [facility] [place] [address] Ashok Rodriguez MD Other, specify (Urine, 1st catch) 08/27/2025 9:37 AM DUMP MOTOR OPERATOR 08/27/2025 9:38 AM DUMP MOTOR OPERATOR us Gabriele Biggs MD MICROBIOLOGY - GENERAL ORDERA BLES Final Result [facility] [phone] [facility] [address] [facility] [place] [address] * DRUG SCREEN, URINE (08/27/2025 9:37 AM DUMP MOTOR OPERATOR) AMPHETAMINES (URINE) NEGATIVE <500 ng/mL [facility] Comment: See Note A See Note A BARBITURATES (URINE) NEGATIVE <300 ng/mL [facility] Comment: See Note A See Note A BENZODIAZEPINES (URINE) NEGATIVE <100 ng/mL [facility] Comment: See Note A See Note A COCAINE & METABOLITE (URINE) NEGATIVE <150 ng/mL [facility] Comment: See Note A See Note A CANNABINOIDS QUAL, URINE NEGATIVE <20 ng/mL [facility] Comment: See Note A See Note A Methadone Metabolite, Urine NEGATIVE <100 ng/mL [facility] Comment: See Note A See Note A OPIATE CLASS (URINE) NEGATIVE <100 ng/mL [facility] Comment: See Note A See Note A OXYCODONE CLASS (URINE) NEGATIVE <100 ng/mL [facility] Comment: See Note A See Note A PHENCYCLIDINE, URINE NEGATIVE <25 ng/mL [facility] Comment: See Note A See Note A Creatinine, Urine 117.7 > or = 20.0 mg/dL [facility] PH 5.0 4.5 - 9.0 [facility] OXIDANT, URINE NEGATIVE <200 mcg/mL [facility] [place] COMMENT TOXICOLOGY [facility] [place] Comment: This drug testing is for medical treatment only. Analysis was performed as non-forensic testing and these results should be used only by healthcare providers to render diagnosis or treatment, or to monitor progress of medical conditions. Note A: The results are presumptive; based only on screening methods, and they have not been confirmed by a definitive method. Healthcare Providers needing Interpretation assistance, please contact us at [phone] ( ) M-F, 8am to 10pm EST Test Performed at: [facility] [address] [place] [address] Akin OQUENDO Urine URINE SPECIMEN OBTAINED BY CLEAN CATCH PROCEDURE / Unknown 08/27/2025 9:37 AM DUMP MOTOR OPERATOR 08/27/2025 9:38 AM DUMP MOTOR OPERATOR Gabriele Biggs MD URINE ORDERABLES Final Result [facility] [phone] [facility] [address] [place] [address] * (ABNORMAL) OBSTETRIC PANEL WITH HIV (08/27/2025 9:37 AM DUMP MOTOR OPERATOR) WBC 5.7 3.8 - 10.8 Thousand /uL [facility] RBC 4.89 3.80 - 5.10 Million/ uL [facility] HEMOGLOBIN 13.0 11.7 - 15.5 g/dL [facility] HEMATOCRIT 41.5 35.0 - 45.0 % [facility] MCV 84.9 80.0 - 100.0 fL [facility] MCH 26.6(L) 27.0 - 33.0 pg [facility] MCHC 31.3(L) 32.0 - 36.0 g/dL [facility] Comment: For adults, a slight decrease in the calculated MCHC value (in the range of 30 to 32 g/dL) is most likely not clinically significant; however, it should be interpreted with caution in correlation with other red cell parameters and the patient's clinical condition. RDW 14.1 11.0 - 15.0 % [facility] PLATELETS 287 140 - 400 Thousand /uL [facility] MPV 11.7 7.5 - 12.5 fL [facility] NEUTROPHIL ABSOLUTE 3,768 1,500 - 7,800 cells/uL [facility] LYMPHOCYTE ABSOLUTE 1,585 850 - 3,900 cells/uL [facility] MONOCYTE ABSOLUTE 274 200 - 950 cells/uL [facility] EOSINOPHIL ABSOLUTE 51 15 - 500 cells/uL [facility] BASOPHILS ABSOLUTE 23 0 - 200 cells/uL [facility] NEUTROPHIL 66.1 % [facility] LYMPHOCYTES 27.8 % [facility] MONOCYTE 4.8 % [facility] EOSINOPHILS 0.9 % [facility] BASOPHILS 0.4 % [facility] ANTIBODY SCREEN NO ANTIBODIES DETECTED [facility] Comment: Reference range No antibodies detected This assay is a screening test for the detection of red blood cell antibodies. The test is not to be used for pretransfusion screening or for the medical management of an alloimmunized . ABO GROUP O [facility] RH (D) TYPE RH(D) POSITIVE [facility] Comment: For additional information, please refer to http://[employer]/faq/KNQ546 (This link is being provided for informational/ educational purposes only.) RPR NON-REACTIVE NON-REAC TIVE [facility] Comment: No laboratory evidence of syphilis. If recent exposure is suspected, submit a new sample in 2-4 weeks. HEPATITIS B SURFACE AG NON-REACTIVE NON-REAC TIVE [facility] Comment: For additional information, please refer to http://[employer]/faq/WXN118 (This link is being provided for informational/ educational purposes only.) RUBELLA IMMUNE STATUS 1.51 Index [facility] Comment: Index Interpretation ----- <0.90 Not consistent with immunity 0.90-0.99 Equivocal > or = 1.00 Consistent with immunity The presence of rubella IgG antibody suggests immunization or past or current infection with rubella virus. QUE[facility] RESULT HIV NEGATIVE [facility] [place] Comment: Quest component Name and Code: HIV FINAL INTERPRETATION [[id number]] HIV-1 antigen and HIV-1/HIV-2 antibodies were not detected. There is no laboratory evidence of HIV infection. HIV-1/2 AG AND AB SCREEN NON-REACTIVE NON-REAC TIVE [facility] [place] HEPATITIS C AB NON-REACTIVE NON-REAC TIVE [facility] [place] Comment: HCV antibody was non-reactive. There is no laboratory evidence of HCV infection. In most cases, no further action is required. However, if recent HCV exposure is suspected, a test for HCV RNA (test code 88005) is suggested. For additional information please refer to http://education.[employer]/faq/QWT59p0 (This link is being provided for informational/ educational purposes only.) Test Performed at: [facility] [address] [place] [address] Ashok Rodriguez MD Blood 08/27/2025 9:37 AM DUMP MOTOR OPERATOR 08/27/2025 9:38 AM DUMP MOTOR OPERATOR Gabriele Biggs MD CHEMISTRY ORDERABLES Final Re sult [facility] [phone] [employer] [address] [place] [address] * GC/CHLAMYDIA, UROGENITAL (08/27/2025 9:36 AM DUMP MOTOR OPERATOR) Only the most recent of2 resultswithin the time period is included. CHLAMYDIA TRACHOMATIS RNA, TMA, UROGENITAL NOT DETECTED NOT DETECTED [facility] [place] NEISSERIA GONORRHOEAE RNA, TMA, UROGENITAL NOT DETECTED NOT DETECTED [facility] [place] COMMENT INFECTIOUS DISEASE [facility] [place] Comment: The analytical performance characteristics of this assay, when used to test SurePath(TM) specimens have been determined by [facility]. The modifications have not been cleared or approved by the FDA. This assay has been validated pursuant to the CLIA regulations and is used for clinical purposes. For additional information, please refer to https://education.[employer]/faq/EHM720 (This link is being provided for information/ educational purposes only.) Test Performed at: [facility] [address] [address] Ashok Rodriguez MD Urine (Urine, 1st catch) 08/27/2025 9:36 AM DUMP MOTOR OPERATOR 08/27/2025 9:38 AM DUMP MOTOR OPERATOR Gabriele Biggs MD MICROBIOLOGY - GENERAL ORDERA BLES Final Result [facility] [phone] [facility] [address] [address] [place] [address] * HCG QUANTITATIVE, BLOOD (06/23/2025 3:55 PM CDT) Only the most recent of2 resultswithin the time period is included. HCG QUANT, BLOOD 876 mIU/mL [facility] Comment: Gestational Age Expected hCG values (mIU/mL) <1 Week: 5-50 1-2 Weeks: 50-500 2-3 Weeks: 100-5000 3-4 Weeks: 500-26171 4-5 Weeks: 1000-70812 5-6 Weeks: [address] 6-8 Weeks: [address] 2-3 Months: [address] The table above provides only a very rough estimate of gestational age and should be used only in conjunction with other methods for establishing gestational age. Much more reliable and accurate estimations of gestational age may be obtained by using LMP or ultrasound. Values from different assay methods may vary. The use of this assay to monitor or to diagnose patients with cancer or any condition unrelated to has not been cleared or approved by the FDA or the agricultural engineering technologist of the assay. FASTING:NO FASTING: NO [facility] [address] [place] [address] Ashok Rodriguez Blood 06/23/2025 3:55 PM CDT 06/23/2025 3:55 PM CDT Gabriele Biggs MD CHEMISTRY ORDERABLES Final Re sult [facility] [phone] [place] [address] [place] [address] * PROGESTERONE (06/23/2025 3:54 PM CDT) Only the most recent of2 resultswithin the time period is included. PROGESTERONE 26.3 ng/mL [facility] jose Longoria Comment: Reference Ranges Female Follicular Phase < 1.0 Luteal Phase 2.6-21.5 Post menopausal < 0.5 1st Trimester 4.1-34.0 2nd Trimester 24.0-76.0 3rd Trimester 52.0-302.0 FASTING:NO FASTING: NO Test Performed at: [place] [address] [place] [address] Ashok Rodriguez Blood 06/23/2025 3:54 PM CDT 06/23/2025 3:54 PM CDT Gabriele Biggs MD CHEMISTRY ORDERABLES Final Re sult Performing Organization Address City/[facility]/ZIP Code Phone Number [facility] [phone] [place] [address] [place] [address] * CERV/VAG CYTO AGE BASED SCREEN PAP W CT/NG, TRICH (04/25/2024 12:51 PM CDT) COMMENT (PAP): [facility] [place] [facility] Comment: This order for age-based cervical cancer and STI screening follows ACOG guidelines(PB 168, 140, UJR029). See individual assays for performing site location. CLINICAL INFORMATION [facility] [place] Comment:None given LAST MENSTRUAL PERIOD [facility] [place] Comment:NONE GIVEN PREV PAP: [facility] [place] [facility] Comment:NONE GIVEN PREV BX: [facility] [place] [facility] Comment:NONE GIVEN SOURCE [facility] [place] Comment:Endocervix ADEQUACY: [facility] [place] Comment: Satisfactory for evaluation. Endocervical/transformation zone component present. Age and/or menstrual status not provided PAP INTERP [facility] [place] Comment: Cytology Results: Negative for intraepithelial lesion or malignancy. CYTOLOGY INFECTION [facility] [place] Comment: Shift in vaginal charlie suggestive of bacterial vaginosis. COMMENT (PAP TEST) [facility] [place] Comment: This Pap test has been evaluated with computer assisted technology. LIMEHOUSE WORKER: Veronica Barrios Comment: LMT, CT(ASCP) CT screening location: [place] [address] [place] [address] EXPLANATORY NOTE [facility] Comment: EXPLANATORY NOTE: The Pap is a screening test for cervical cancer. It is not a diagnostic test and is subject to false negative and false positive results. It is most reliable when a satisfactory sample, regularly obtained, is submitted with relevant clinical findings and history, and when the Pap result is evaluated along with historic and current clinical information. C TRAC RNA NOT DETECTED NOT DETECTED [facility] [place] N.GONORRHOEAE RNA, TMA NOT DETECTED NOT DETECTED [facility] [place] COMMENT INFECTIOUS DISEASE [facility] [place] [facility] Comment: The analytical performance characteristics of this assay, when used to test SurePath(TM) specimens have been determined by [facility]. The modifications have not been cleared or approved by the FDA. This assay has been validated pursuant to the CLIA regulations and is used for clinical purposes. For additional information, please refer to [email or web address] (This link is being provided for information/ educational purposes only.) TRICHOMONAS VAGINALIS,QUALITAT RAGHAVENDRA,PAP VIAL NOT DETECTED NOT DETECTED [facility] [place] Comment: The analytical performance characteristics of this assay have been determined by [employer]. The modifications have not been cleared or approved by the FDA. This assay has been validated pursuant to the CLIA regulations and is used for clinical purposes. For additional information, please refer to [email or web address]/ [email or web address] (This link is being provided for information/ educational purposes only.) Test Performed at: [facility] [address] [place] [address] Ashok RAMSAY Genital SWAB OF ENDOCERVIX / Unknown 04/25/2024 12:51 PM CDT 04/28/2024 4:56 AM CDT Gabriele Biggs MD PATHOLOGY/CYTOLOGY ORDERABLES Final Result Performing Organization Address City/State/[facility] Co de Phone Number [facility] [phone] [facility]ostics[facility] [address] [address] [address] from Last 3 Months or Most Recently Relevant to Health Maintenance Insurance RX INFOCROSSING Medicaid RX INFOCROSSING Medicaid RX [employer] (INTERNAL) [facility] [id number] [facility] [id number] Advance Directives For more information, please contact: [phone] * Full Code (Latest Code Status on File) Date Activated Date Inactivated Comments 08/13/2024 1:31 PM 08/16/2024 12:11 AM * Full Code Date Activated Date Inactivated Comments 08/13/2024 12:57 AM 08/13/2024 1:31 PM * Full Code Date Activated Date Inactivated Comments 08/12/2024 10:40 PM 08/13/2024 12:57 AM * Full Code Date Activated Date Inactivated Comments 04/21/2023 4:50 AM 04/22/2023 5:47 PM * Full Code Date Activated Date Inactivated Comments 04/20/2023 3:28 PM 04/21/2023 4:50 AM
[2025-09-04 04:41] LABS: Hematocrit 35.1 % (37.0-47.0); Hemoglobin 11.6 g/dL (12.0-15.0); Immature Granulocyte Percent A 0.4 % (0-0.5); Lymphocytes Absolute Auto 0.50 K/mm3 (0.9-3.2); Mean Corpuscular HGB Conc 33.0 g/dl (32-36); Mean Corpuscular Hemoglobin 26.4 pg (26-34); Mean Corpuscular Volume 79.8 fl (80-100); Nucleated Red Blood Cells Absolute Auto 0.000 K/mm3 (0.0-0.012); Nucleated Red Blood Cells Perc 0.0 % (0.0-0.2); Platelet Count Result 260 k/mm3 (150-375); Red Blood Count 4.40 M/mm3 (4.2-5.4); White Blood Count 5.4 K/mm3 (4.5-10.0)
[2025-09-04 04:53] LABS: Alanine Aminotransferase 13 U/L (6-35); Albumin Level 3.6 g/dL (3.5-5.1); Alkaline Phosphatase 68 U/L (38-126); Anion Gap 5 mmol/L (4-12); Aspartate Amino Transferase 19 U/L (14-36); Bilirubin,Total 0.9 mg/dL (0.2-1.3); Blood Urea Nitrogen 6 mg/dL (7-17); Calcium 8.4 mg/dL (8.4-10.2); Carbon Dioxide 25 mmol/L (22-30); Chloride 101 mmol/L (98-107); Estimated CRCL calculation 111 ml/min; Estimated Glomerular Filt Rate > 60; Glucose 111 mg/dL (65-110); Lipase 32 U/L (23-300); Potassium 3.4 mmol/L (3.4-5.0); Sodium 131 mmol/L (137-145); Total Protein 6.8 g/dL (6.3-8.2)
[2025-09-04 05:16] LABS: Influenza A QL RT-PCR Negative (Negative); Influenza B QL RT-PCR Negative (Negative); RSV RNA, RT-PCR Negative (Negative); SARS-CoV-2 RNA PCR Negative (Negative)
[2025-09-04 05:38] LABS: Add Urine Microscopic? YES; Appearance Urine Cloudy (Clear); Glucose Urine UA Negative (Negative); Leukocyte Esterase Ur Trace LEU/UL (Negative); Nitrate Urine Negative (Negative); Non Pathogenic Casts 0-2; Specific Grav Ur 1.020 (1.001-1.035)
== END 2025-09-04 05:56 | disposition home or self-care (01) ==
PROVIDERS: Emergency Provider Student in an Organized Health Care Education/Training Program
DX: O26.892 Other specified pregnancy related conditions, second trimester (principal); R11.2 Nausea with vomiting, unspecified; Z3A.14 14 weeks gestation of pregnancy; Z20.822 Contact with and (suspected) exposure to COVID-19
CPT/HCPCS: 36415; 80053; 81001; 83690; 85025; 87637; 96361; 96374; 96375; 99284; J2405; J3415; J7120